=== PATIENT | male | born 1990 | race Caucasian/White ===

== ENCOUNTER 2019-03-04 02:11 | Emergency (ER) | payer SELFPAY ==
[~2019-03-04] VITALS: Ht 188 cm; Wt 104.5 kg
[2019-03-04 02:16] VITALS: BP 143/86; TEMP 97.7
[2019-03-04 02:47] LABS: BASO % 0.5 % (0.0-2.0); EOS # 0.3 (0.0-0.7); EOS % 3.3 % (0-4.0); GRAN # 3.2 (1.4-6.5); GRAN % 42.7 % (42.2-75.2); HEMATOCRIT 43.6 % (42.0-52.0); HEMOGLOBIN 14.8 g/dl (13.5-18.0); LYMPH # 3.4 (1.2-3.4); LYMPH % 44.6 % (20.0-51.0); MEAN CELL VOLUME 88 fl (80.0-100.0); MEAN CORPUSCULAR HEMOGLOBIN 30 pg (27.0-31.0); MEAN CORPUSCULAR HGB CONC 34 g/dl (33.0-37.0); MONO # 0.7 (0.1-0.6); MONO % 8.6 % (1.7-9.3); PLATELET COUNT 159 K/mm3 (130-400); RED BLOOD COUNT 4.96 M/mm3 (4.20-5.60)
[2019-03-04 02:59] LABS: ALANINE AMINOTRANSFERASE 12 U/L (21-72); ALBUMIN 4.1 gm/dL (3.5-5.0); ALKALINE PHOSPHATASE 75 U/L (50-136); ANION GAP 9 mmol/L (7-16); AST,SGOT 23 U/L (15-37); BILIRUBIN,TOTAL 0.3 mg/dL (0.0-1.0); BLOOD UREA NITROGEN 20 mg/dL (9-20); C-REACTIVE PROTEIN < 0.5 mg/dL (0.0-0.9); CALCIUM 9.2 mg/dL (8.4-10.2); CARBON DIOXIDE 25 mmol/L (22-30); CHLORIDE 108 mmol/L (98-107); CREATININE, serum 1.07 (0.66-1.25); GLUCOSE 91 mg/dL (74-106); POTASSIUM 3.9 mmol/L (3.4-5.0); SODIUM 142 mmol/L (137-145); TOTAL PROTEIN 6.9 gm/dL (6.4-8.2)
[2019-03-04 03:09] LABS: ERYTHROCYTE SEDIMENTATION RATE 1 mm/hr (0-15)
[2019-03-04 03:13] VITALS: PULSE 67
== END 2019-03-04 03:15 | disposition home or self-care (01) ==
LOC: COL.ER 02:11
PROVIDERS: Physician Assistant
DX: G89.29 Other chronic pain (principal); M25.561 Pain in right knee; M25.562 Pain in left knee; F17.210 Nicotine dependence, cigarettes, uncomplicated; F12.90 Cannabis use, unspecified, uncomplicated; Z90.89 Acquired absence of other organs

== ENCOUNTER 2019-05-09 12:05 | Emergency (ER) | payer SELFPAY ==
[~2019-05-09] VITALS: Ht 188 cm; Wt 109.1 kg
[2019-05-09 12:11] VITALS: BP 127/73
[2019-05-09] MEDS ORDERED: AMOXICILLIN875 MG PO (12:14)
[2019-05-09] MEDS ORDERED: ALBUTEROL0.83 MG/ML INH (12:15)
[2019-05-09] MEDS ORDERED: PREDNISONE20 MG PO (13:32)
[2019-05-09 14:14] VITALS: PULSE 99; TEMP 97.8
== END 2019-05-09 14:09 | disposition home or self-care (01) ==
LOC: COL.ER 12:05
DX: J40 Bronchitis, not specified as acute or chronic (principal); F17.210 Nicotine dependence, cigarettes, uncomplicated; Z88.1 Allergy status to other antibiotic agents; Z90.49 Acquired absence of other specified parts of digestive tract